=== PATIENT | male | born 1980 | race Caucasian/White ===

== ENCOUNTER 2021-02-28 05:32 | Emergency (ER) | payer OTHER ==
[~2021-02-28] VITALS: Ht 177.8 cm; Wt 70.3 kg
[2021-02-28 05:36] VITALS: BP 152/94
--- NOTE | 2021-02-28 05:36 | NUR ---
BIBRA FROM STREET C/O RIB PAIN. NO RECENT TRAUMA OR INJURIES. PT ALERT AND ORIENTEDX4 BREATHING EVEN AND UNLABORED ALL V/S STABLE.
[2021-02-28] MEDS ORDERED: IBUP-1957 PO (06:46)
[2021-02-28] MEDS ORDERED: ACETAMINOPHEN ES 500 MG TABLET PO ONE (07:00)
[2021-02-28] MEDS ORDERED: IBUPROFEN 400 MG TABLET PO ONE (07:00)
== END 2021-02-28 06:51 | disposition home or self-care (01) ==
LOC: ER 05:36
DX: S22.32XA Fracture of one rib, left side, initial encounter for closed fracture (principal); X58.XXXA Exposure to other specified factors, initial encounter; Y93.89 Activity, other specified; Y92.89 Other specified places as the place of occurrence of the external cause; Y99.8 Other external cause status
CPT/HCPCS: 71100-TC